=== PATIENT | male | born 1980 | race Caucasian/White ===

== ENCOUNTER 2023-04-15 07:38 | Outpatient (CLI) | payer OTHER ==
--- NOTE | 2023-04-17 08:20 | MRI Report ---
PROCEDURE: LUMBAR SPINE WO INDICATIONS: LOW BACK PAIN TECHNIQUE: Noncontrast sagittal T1 spin echo and T2 fast echo, sagittal STIR, axial T1 and T2 fast spin echo thr ough the lumbar spine. In cases with scoliosis, additional coronal T2 fast spin echo may be performe d. COMPARISON: None. FINDINGS: Image quality: Excellent. Alignment and Curvature: There is normal bony alignment. Bone Marrow: Marrow is of normal overall signal. No acute vertebral body compression fractures. Spinal Cord: Conus medullaris terminates at the L1 level. Visualized cord demonstrates normal signa l and size. Paraspinous Soft Tissues: No paravertebral masses. T12-L1: Normal in appearance. L1-L2: Disc desiccation and mild disc height loss. Minimal disc bulge. No canal stenosis or forami nal stenosis. L2-L3: Mild disc bulge. No canal stenosis or foraminal stenosis. L3-L4: Disc bulge. Mild facet hypertrophy. No canal stenosis or foraminal stenosis. L4-L5: Disc bulge. Facet hypertrophy. Mild canal stenosis. No significant foraminal stenosis. L5-S1: Disc bulge. Facet hypertrophy. No significant canal stenosis. Mild bilateral foraminal steno sis. IMPRESSION: 1. Multilevel lower lumbar facet arthropathy. 2. Mild canal stenosis at L4-L5. Reviewed by: Warren Qureshi MD on 04/17/2023 8:19 AM PDT Approved by: Warren Qureshi MD on 04/17/2023 8:19 AM PDT Station ID: [id number]
== END 2023-04-15 07:39 | disposition home or self-care (01) ==
LOC: DI 07:38
DX: M51.36 Other intervertebral disc degeneration, lumbar region (principal); M48.061 Spinal stenosis, lumbar region without neurogenic claudication; M47.816 Spondylosis without myelopathy or radiculopathy, lumbar region; M51.37 Other intervertebral disc degeneration, lumbosacral region; M48.07 Spinal stenosis, lumbosacral region; M47.817 Spondylosis without myelopathy or radiculopathy, lumbosacral region

== ENCOUNTER 2023-07-24 20:28 | Outpatient (CLI) | payer OTHER | END 2023-07-24 20:29 | disposition home or self-care (01) | LOC: SC 20:28 | PROVIDERS: ATTEND Nurse Practitioner Family | DX: R06.83 Snoring (principal); G47.8 Other sleep disorders; R51.9 Headache, unspecified; G47.10 Hypersomnia, unspecified; R53.83 Other fatigue; E66.3 Overweight; Z68.26 Body mass index [BMI] 26.0-26.9, adult | CPT/HCPCS: 95810 ==

== ENCOUNTER 2023-08-01 16:01 | Outpatient (CLI) | payer OTHER ==
--- NOTE | 2023-08-01 15:20 | SLEEP CARE CONSULTATION ---
Information from patient questionnaire entered by Maren Grimes. I have reviewed and concur with the information entered by Maren Grimes. This document represents the service I personally performed and the decisions made by , Rachelle Duarte ARNP. History of Present Illness Service Date and Time: 08/01/2023 1500 Initial [place] Sleepiness Scale score: 8 (07/20/23) Current [place] Sleepiness Scale score: 5 (08/01/23) Additional HPI information: CHRISTIAN SUAZO returns for follow up and results of the recently performed polysomnography. The patient was informed of the following findings: No significant sleep disordered breathing with an average AHI of 0.9 and maya oxygen saturation of 89%. I explained the pathophysiology behind obstructive sleep apnea. Patient does not have sleep apnea and was advised how weight gain could increase the risk of developing sleep apnea in the future. I encouraged the patient to maintain a healthy weight. Patient has mild snoring. Snoring can be reduced by weight loss. Weight loss is best achieved with diet consult. Patient instructed to contact PCP for referral. Snoring can also be treated with an oral appliance from a dentist. Advised to check insurance coverage. In addition, an ENT evaluation can be do to see if other treatment is indicated. Patient counseled not drink alcohol less than 4 hours before bedtime as it can increase snoring and apnea. Patient was cautioned about risks of drowsy driving until sleepiness symptoms resolve. Patient denies drowsy driving. Sleep Study - Results Type of Sleep Study: Polysomnography (COMPLETED 07/24/23) Prior sleep studies: No Polysomnography/Home Sleep Study results: IMPRESSION: The quality of the study is good. The patient had normal sleep efficiency. The sleep architecture was abnormal for mild sleep fragmentation and reduced amount of time spent in slow wave sleep (N3). Respiratory monitoring showed no significant sleep disordered breathing (AHI = 0.9) or hypoxia (maya oxygen saturation of 89%). The few respiratory events occurred only supine sleep (supine AHI = 2.0; non-supine = 0.00). Snore was light in intensity. There was no significant periodic leg movement of sleep. Cardiac rhythm was normal sinus rhythm without significant arrhythmia. No abnormal behavior (parasomnia) observed during the night. Allergies and Home Medications Known drug allergies: No Drug allergies reviewed: Yes Home medication list reviewed: Yes (no changes) Allergy and home medication list: Allergies No Known Drug Allergies Allergy (Verified 07/28/23 11:57) Review of Systems Review of systems same as previous: Yes (NO CHANGE) Physical Exam Vital signs obtained and entered by: MAREN Gamino MA Height: 6 ft 2 in (PER PT) Weight: 200 lb (PER PT) Body Mass Index: 25.7 BMI Classification: Overweight Impression and Plan 1. Snoring but no significant sleep disordered breathing. Patient advised that often weight loss will reduce snoring as well as apnea risk. An oral appliance can also be used for snoring. This would require a dental consultation. Patient cautioned not to use other online appliances as can cause bite issues. Patient is advised to check if insurance will cover. An ENT consult can also be helpful to determine if any other treatment is an option. 2. Overweight, unspecified. Currently patients BMI is 25.7. Obesity increases the risk of apnea, CPAP pressure requirements and overall health risks audie cially cardiovascular and diabetes. Thus patient is advised to maintain a healthy weight. * Maintain a healthy weight * Avoid alcohol consumption near bedtime * The patient is cautioned about driving until sleepiness is completely resolved. * Return as needed for follow up. Counseling Topics: Weight control Visit Type: Telehealth Phone Video Type: DoxNarrable Patient Location: Work Location of Provider: Office Patient agrees and consents to this telehealth visit type: Yes Patient agrees to have their insurance billed: Yes Time Spent with Patient (minutes): 10 Provider Statement: I spent 100% of the Telehealth Phone Call with the patient with greater than 50% spent counseling the patient and coordination of care.
== END 2023-08-01 16:02 | disposition home or self-care (01) ==
LOC: SC 16:01
PROVIDERS: ATTEND Nurse Practitioner Family
DX: R06.83 Snoring (principal)
CPT/HCPCS: 99441